=== PATIENT | male | born 2000 | race Caucasian/White ===

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

== ENCOUNTER 2024-08-13 23:56 | Emergency (ER) | payer SELFPAY ==
[2024-08-13 23:56] VITALS: BP 200/104; PULSE 93; RESP 16; TEMP 36.4; O2SAT 100; BMI 42.0
[2024-08-14 00:02] VITALS: BP 200/104; PULSE 93; RESP 16; TEMP 36.4; O2SAT 100
[2024-08-14 00:24] VITALS: BP 164/106; PULSE 78; RESP 16; O2SAT 99
--- NOTE | 2024-08-14 00:26 | EDS_ITS ---
HPI History of Present Illness Chief Complaint: Dental Informant: patient Narrative Narrative: 24-year-old male presenting with severe dental pain and swelling. He states he had a tooth that seem to decay and fall apart 2 days ago and ever since he has been having worsening pain and swelling. No fevers or chills. No discharge or bleeding from inside of his mouth. No problems breathing or swallowing. [facility] Medical History Hypertension Medical History no medical history Home Medications ?Medication ?Instructions ?Recorded ?Last Taken ?Type amlodipine 5 mg tablet 5 mg PO DAILY ##20 11/27/16 Unknown Rx tramadol 50 mg tablet 50 mg PO Q8H PRN PRN Pain #1 0 tabs 11/27/16 Unknown Rx amoxicillin 500 mg tablet 500 mg PO TID #30 tabs 08/14 Unknown Rx Allergy/AdvReac Type Severity Reaction Status Date / Time No Known Allergies Allergy Verified 08/14/24 00:03 Social History Smoking Status: Current every day smoker tobacco type: e-cigarettes ROS ROS ED Constitutional Constitutional ED: Denies chills or fever(s) Eyes Eyes: Denies change in vision or double vision ENT ENT ED: Reports dental pain and other Details: Left facial swelling ; Denies sinus pain or throat swelling Cardiovascular Cardiovascular: Denies chest pain or palpitations Respiratory/Chest Respiratory/Chest: Denies cough or dyspnea Integumentary Denies abscess or rash Neurologic Neurologic: Denies headache(s), paresthesias or weakness EXAM Physical Exam Const Vital Signs: 08/13/24 23:56 08/14/24 00:02 08/14/24 00:24 Temperature 97.5 F L 97.5 F L Temperature Source Oral Oral Pulse Rate 93 93 78 Respiratory Rate 16 16 16 Blood Pressure 200/104 H 200/104 H 164/106 H Blood Pressure Mean 136 136 125 Pulse Ox 100 100 99 Oxygen Delivery Method Room Air Room Air Room Air Positive well nourished and well developed General Appearance ED: well developed and NAD HEENT HEENT Narrative: External asymmetry with regards to the patient's maxilla, there is swelling and tenderness with what feels like a focal collection on the left. There is a decayed bicuspid left maxillary, with an abscess pointing intraorally just above this external to the gingiva which otherwise appear unremarkable. No trismus. No tongue elevation. Face and Sinus: sinuses nontender Throat: posterior oropharynx normal Eyes PERRL and EOMs intact bilaterally Neck no lymphadenopathy and supple Resp normal respiratory effort Neuro oriented x3 and CN's II-XII intact bilaterally Sensorium / Orientation: alert Gait (Neuro): normal gait Psych mental status grossly normal and thought process normal Skin no rashes or lesions noted and no wounds MDM MDM MDM Narrative Medical decision making narrative: Patient was amenable to needle aspiration of what appears to be a dental abscess. This was successful see the procedure note. He started on amoxicillin I gave him something for pain here tonight, advised to follow-up with a dentist and given a resource list. Procedures Other Procedures Procedure(s): Dental abscess drainage: After verbal consent from the patient after informing of pros and cons of procedure, he was locally anesthetized with Cetacaine spray, followed by attempted needle aspiration with a 21-gauge 1 inch needle. I was not able to aspirate pus, however after withdrawing the needle, pus began pouring out of the aspiration site, I was able to gently apply pressure to the abscess and express more pus and the patient was able to spit this out and irrigate himself with ice water. Tolerated well no complications. Airway intact. Discharge Plan Triage Chief Complaint: Dental ED Provider: Jason Falcon Dx/Rx/DC Orders Clinical Impression: Dental abscess, Dental decay Instructions: ED Dental Abscess Prescriptions: New amoxicillin 500 mg tablet 500 mg PO TID Qty: 30 0RF No Action amlodipine 5 MG tablet 5 mg PO DAILY Qty: 20 0RF tramadol 50 MG tablet 50 mg PO Q8H PRN PRN (Reason: Pain) Qty: 10 0RF Primary Care Provider: Care Physician,No Primary Referrals: Dentist,Your [STAFF PHYSICIAN] - As soon as possible (See attached resource list if needed) Print Language: Vietnamese Disposition Disposition: Home, Self Care
--- OUTSIDE RECORDS SUMMARY | 2024-08-14 00:33 | XMS RPT_ITS | CCD ---
Author Organization [facility] Care Team Providers Care Manager Mechanical Name Role Phone VJ PLUMMER (ORTHODONTIC TECHNICIAN) Unavailable Unavailable KERRI RENTERIA (JAI ALAI PLAYER) Unavailable UnavailELENA Kwong Attending Unavailable PHYSICIAN, NONE Primary Care Unavailable PHYSICIAN, NONE Primary Care Unavailable MARIA DOLORES FLORES DO Attending Unavailable Problems Problem Classification Problem Date Documented Da te Episodic/Chronic Administrative/social admission (1 source) Person awaiting admission to adequate facility elsewhere; Translations: [Person awaiting admission to adequate facility elsewhere] Onset: 06-02-2024 Episodic Substance-related disorders (1 source) Nicotine dependence, cigarettes, uncomplicated; Translations: [Nicotine dependence, cigarettes, uncomplicated] Onset: 06-02-2024 Chronic Suicide and intentional self-inflicted injury (1 source) Suicidal ideations; Translations: [Suicidal ideations] Onset: 06-02-2024 Episodic Unclassified (1 source) Encounter for screening for COVID-19; Translations: [Encounter for screening for COVID-19] Onset: 06-02-2024 Results Test Name Value Interpretation Reference Range Facility .Auto Diffon 06-02-2024 Basophil, Absolute 0.0 10 3/mcL Normal 0.0-0.2 [facility] Comment on above: Performed By: #### C K, TROPHS, ADIFF, CMP, CBC, GFR, ALC, ACETA, ANEU, MDW, LIAN #### [id number] [place], [place] [address] Basophils/100 WBC (Bld) 0.3 % Normal 0.0-2.5 [facility] Comment on above: Performed By: #### C K, TROPHS, ADIFF, CMP, CBC, GFR, ALC, ACETA, ANEU, MDW, LIAN #### [address] [address] Eosinophil, Absolute 0.0 10 3/mcL Normal 0.0-0.7 [facility] Comment on above: Performed By: #### C K, TROPHS, ADIFF, CMP, CBC, GFR, ALC, ACETA, ANEU, MDW, LIAN #### [address] [address] Eosinophils/100 WBC (Bld) 0.2 % Normal 0.0-7.0 [facility] Comment on above: Performed By: #### C K, TROPHS, ADIFF, CMP, CBC, GFR, ALC, ACETA, ANEU, MDW, LIAN #### [address] [address] Lymphocyte, Absolute 1.2 10 3/mcL Normal 0.9-4.3 [facility] Comment on above: Performed By: #### C K, TROPHS, ADIFF, CMP, CBC, GFR, ALC, ACETA, ANEU, MDW, LIAN #### [address] [address] Lymphocytes/100 WBC (Bld) 13.7 % Low 20.0-40.0 [facility] Comment on above: Performed By: #### C K, TROPHS, ADIFF, CMP, CBC, GFR, ALC, ACETA, ANEU, MDW, LIAN #### [address] [address] Monocyte, Absolute 0.5 10 3/mcL Normal 0.1-1.4 [facility] Comment on above: Performed By: #### C K, TROPHS, ADIFF, CMP, CBC, GFR, ALC, ACETA, ANEU, MDW, LIAN #### [address] [address] Monocytes/100 WBC (Bld) 6.0 % Normal 2.0-13.0 [facility] Comment on above: Performed By: #### C K, TROPHS, ADIFF, CMP, CBC, GFR, ALC, ACETA, ANEU, MDW, LIAN #### [address] [address] Neutrophils/100 WBC (Bld) 79.8 % High 50.0-75.0 [facility] Comment on above: Performed By: #### C K, TROPHS, ADIFF, CMP, CBC, GFR, ALC, ACETA, ANEU, MDW, LIAN #### [address] [address] .GFRon 06-02-2024 GFR/1.73 sq M.predicted among non-blacks MDRD (S/P/Bld) [Vol rate/Area] mL/min/{1.73_m2} Normal [facility] Comment on above: Result Comment: Stages of Chronic Kidney Disease (CKD) Stage Description eGFR(ml/min/1.73 sq.m.) CKD 1 Normal kidney function or >=90 normal kindney function with possible kidney damage (ex. Proteinuria) CKD 2 Kidney damage with mild loss 60-89 of kidney function CKD 3a Mild to moderate loss of kidney 45-59 function CKD 3b Moderate to severe loss of 30-44 of kindey function CKD 4 Severe loss of kidney function 15-29 CKD 5 Kidney failure <15 Note: (go live 2024) the eGFR calculation was updated to the 2020 CKD-EPI creatinine equation without a race factor to calculate the eGFR results. Performed By: #### U DRUG, UA #### [address] [address] #### UFENTS, UOXYS #### [address] [address] .MDWon 06-02-2024 Monocyte Distribution Width 14.80 Normal 0.00-20.00 [facility] Comment on above: Result Comment: For ED adult patients suspected of sepsis, MDW<=20.0 does not rule out sepsis or risk of sepsis Performed By: #### C K, TROPHS, ADIFF, CMP, CBC, GFR, ALC, ACETA, ANEU, MDW, LIAN #### [address] [address] .NEUABSon 06-02-2024 Neutrophil, Absolute 6.7 10 3/mcL Normal 2.3-8.1 [facility] Comment on above: Performed By: #### C Asael, TROPHS, ADIFF, CMP, CBC, GFR, ALC, ACETA, ANEU, MDW, LIAN #### [address] [address] ACETAon 06-02-2024 Acetaminophen [Mass/Vol] 0.0 ug/mL Low 10.0-30.0 [facility] Comment on above: Performed By: #### U DRUG, UA #### [place] [address] #### UFENTS, UOXYS #### [place] [address] Robb 06-02-2024 Ethanol Level 4 mg/dL Normal [facility] Comment on above: Performed By: #### U DRUG, UA #### [place] [address] #### UFENTS, UOXYS #### [place] [address] CBCon 06-02-2024 Erythrocyte distribution width (RBC) [Ratio] 13.6 % Normal 11.5-15.5 [facility] Comment on above: Performed By: #### C K, TROPHS, ADIFF, CMP, CBC, GFR, ALC, ACETA, ANEU, MDW, LIAN #### [address] [address] Hematocrit (Bld) [Volume fraction] 46.1 % Normal 40.0-52.0 [facility] Comment on above: Performed By: #### C K, TROPHS, ADIFF, CMP, CBC, GFR, ALC, ACETA, ANEU, MDW, LIAN #### [place] [id number] Hgb 15.7 G/dL Normal 13.0-17.5 [facility] Comment on above: Performed By: #### C K, TROPHS, ADIFF, CMP, CBC, GFR, ALC, ACETA, ANEU, MDW, LIAN #### [address] [address] MCH (RBC) [Entitic mass] 30.4 pg Normal 27.0-33.0 [facility] Comment on above: Performed By: #### Sussy Vyas, TROPHS, ADIFF, CMP, CBC, GFR, ALC, ACETA, ANEU, MDW, LIAN #### [address] [address] MCHC 34.1 G/dL Normal 32.0-36.0 [facility] Comment on above: Performed By: #### Sussy Vyas, TROPHS, ADIFF, CMP, CBC, GFR, ALC, ACETA, ANEU, MDW, LIAN #### [address] [address] MCV (RBC) [Entitic vol] 89.0 fL Normal 81.0-100.0 [facility] Comment on above: Performed By: #### Sussy Vyas, TROPHS, ADIFF, CMP, CBC, GFR, ALC, ACETA, ANEU, MDW, LIAN #### [address] [address] Platelet 330 10 3/mcL Normal 150-450 [facility] Comment on above: Performed By: #### Sussy Vyas, TROPHS, ADIFF, CMP, CBC, GFR, ALC, ACETA, ANEU, MDW, LIAN #### [address] [address] Platelet mean volume (Bld) [Entitic vol] 8.6 fL Normal 6.4-10.5 [facility] Comment on above: Performed By: #### Sussy Vyas, TROPHS, ADIFF, CMP, CBC, GFR, ALC, ACETA, ANEU, MDW, LIAN #### [address] [address] RBC 5.18 10 6/mcL Normal 4.50-6.00 [facility] Comment on above: Performed By: #### Sussy Vyas, TROPHS, ADIFF, CMP, CBC, GFR, ALC, ACETA, ANEU, MDW, LIAN #### [address] [address] WBC 8.4 10 3/mcL Normal 4.5-10.8 [facility] Comment on above: Performed By: #### C K, TROPHS, ADIFF, CMP, CBC, GFR, ALC, ACETA, ANEU, MDW, LIAN #### [address] [address] CKon 06-02-2024 CK [Catalytic activity/Vol] 116 U/L Normal 39-308 [facility] Comment on above: Performed By: #### C K, TROPHS, ADIFF, CMP, CBC, GFR, ALC, ACETA, ANEU, MDW, LIAN #### [address] [address] CMPon 06-02-2024 Albumin Level 4.5 G/dL Normal 3.5-5.0 [facility] Comment on above: Performed By: #### U DRUG, UA #### [place] [address] #### UFENTS, UOXYS #### [address] [address] Albumin/Globulin [Mass ratio] 1.2 {ratio} Normal 1.1-2.5 [facility] Comment on above: Performed By: #### U DRUG, UA #### [place] [address] #### UFENTS, UOXYS #### [address] [address] ALP [Catalytic activity/Vol] 70 U/L Normal 40-135 [facility] Comment on above: Performed By: #### U DRUG, UA #### [place] [address] #### UFENTS, UOXYS #### [address] [address] ALT [Catalytic activity/Vol] 29 U/L Normal 16-63 [facility] Comment on above: Performed By: #### U DRUG, UA #### [place] [address] #### UFENTS, UOXYS #### [address] [address] AST [Catalytic activity/Vol] 17 U/L Normal 10-40 [facility] Comment on above: Performed By: #### U DRUG, UA #### [address] [address] #### UFENTS, UOXYS #### [address] [address] Bili Total 0.8 mg/dL Normal 0.2-1.0 [facility] Comment on above: Result Comment: Use of this assay is not recommended for patients undergoing treatment with eltrombopag due to the potential for falsely elevated results. Performed By: #### U DRUG, UA #### [address] [address] #### UFENTS, UOXYS #### [address] [address] BUN/Creatinine Ratio 11 ratio Normal 7-27 [facility] Comment on above: Performed By: #### U DRUG, UA #### [address] [address] #### UFENTS, UOXYS #### [address] [address] Calcium [Mass/Vol] 9.5 mg/dL Normal 8.4-10.2 [facility] Comment on above: Performed By: #### U DRUG, UA #### [address] [address] #### UFENTS, UOXYS #### [address] [address] Chloride [Moles/Vol] 102 mmol/L Normal 98-107 [facility] Comment on above: Performed By: #### U DRUG, UA #### [address] [address] #### UFENTS, UOXYS #### [address] [address] CO2 [Moles/Vol] 27 mmol/L Normal 22-29 [facility] Comment on above: Performed By: #### U DRUG, UA #### [place] [address] #### UFENTS, UOXYS #### [address] [address] Creatinine [Mass/Vol] 0.83 mg/dL Normal 0.70-1.30 [facility] Comment on above: Result Comment: Test ing performed on Siemens Dimension EXL analyzer using a modified kinetic Hao technique. Performed By: #### U DRUG, UA #### [place] [address] #### UFENTS, UOXYS #### [place] [address] Electrolyte Balance 11.0 mEq/L Normal 4.0-15.0 [facility] Comment on above: Performed By: #### U DRUG, UA #### [place] [address] #### UFENTS, UOXYS #### [address] [address] Globulin 3.7 G/dL Normal 1.5-3.8 [facility] Comment on above: Performed By: #### U DRUG, UA #### [place] [address] #### UFENTS, UOXYS #### [address] [address] Glucose [Mass/Vol] 116 mg/dL High 70-105 [facility] Comment on above: Performed By: #### U DRUG, UA #### [place] [address] #### UFENTS, UOXYS #### [address] [address] Potassium [Moles/Vol] 3.8 mmol/L Normal 3.5-5.1 [facility] Comment on above: Performed By: #### U DRUG, UA #### [address] [address] #### UFENTS, UOXYS #### [address] [address] Sodium [Moles/Vol] 140 mmol/L Normal 136-145 [facility] Comment on above: Performed By: #### U DRUG, UA #### [place] [address] #### UFENTS, UOXYS #### [address] [address] Total Protein 8.2 G/dL Normal 6.4-8.2 [facility] Comment on above: Performed By: #### U DRUG, UA #### [place] [address] #### UFENTS, UOXYS #### [address] [address] Urea nitrogen [Mass/Vol] 9 mg/dL Normal 7-18 [facility] Comment on above: Performed By: #### U DRUG, UA #### [place] [address] #### UFENTS, UOXYS #### [address] [address] CVFLURVon 06-02-2024 FLU A PCR Negative Normal Negative [facility] Comment on above: Performed By: #### C VFLURV #### [place] [address] FLU B PCR Negative Normal Negative [facility] Comment on above: Performed By: #### C VFLURV #### [place] [address] RSV PCR Negative Normal Negative [facility] Comment on above: Performed By: #### C VFLURV #### [place] [address] SARS-CoV-2 (COVID-19) RNA XAVIER+probe Ql (Unsp spec) Negative Normal Negative [facility] Comment on above: Result Comment: Resu lts from the Xpert Xpress CoV-2/Flu/RSV plus test should be correlated with the clinical history, epidemiological data, and other data available to the clinical evaluating the patient. Performance of the Xpert Xpress CoV-2/Flu/RSV plus test has only been established in nasopharyngeal swab specimen. Erroneous test results might occur from improper specimen collection, failure to follow the recommended sample collection, handling and storage procedures, technical error, or sample mix-up. False negative results may occur if a virus is present at a level below the analytical limit of detection. Viral nucleic acid may persist in vivo, independent of virus viability. Detection of analyte target(s) does not imply that the corresponding virus(es) are infectious or are the causative agents for clinical symptoms. Recent patient exposure to FluMist or other live attenuated influenza vaccines may cause inaccurate positive results. Performed By: #### C VFLURV #### [address] [address] [facility] 06-02-2024 Salicylate Level 0.9 mg/dL Low 2.8-20.0 [facility] Comment on above: Performed By: #### U DRUG, UA #### [address] [address] #### UFENTS, UOXYS #### [address] 06-02-2024 High Sensitivity Troponin I 4 ng/L Normal 0-76 [facility] Comment on above: Result Comment: High Sensitive Troponin I Reference Ranges: Female: 0-51 ng/L Male: 0-76 ng/L Testing performed on [employer] using a homogeneous sandwich chemiluminescent immunoassay based on [employer] technology. Performed By: #### U DRUG, UA #### [address] [address] #### UFENTS, UOXYS #### [address] 06-02-2024 Color (U) Yellow Normal [facility] Comment on above: Performed By: #### U DRUG, UA #### [address] [address] #### UFENTS, UOXYS #### [facility] [address] [place] [address] Glucose (U) [Mass/Vol] Negative Normal Negative [facility] Comment on above: Performed By: #### U DRUG, UA #### [address] [address] #### UFENTS, UOXYS #### [facility] [address] [place] [address] Ketones Ql (U) Trace Abnormal Negative [facility] Comment on above: Performed By: #### U DRUG, UA #### [address] [address] #### UFENTS, UOXYS #### [address] [address] UA Appear Clear Normal Clear [facility] Comment on above: Performed By: #### U DRUG, UA #### [address] [address] #### UFENTS, UOXYS #### [address] [address] UA Blood Negative Normal Negative [facility] Comment on above: Performed By: #### U DRUG, UA #### [address] [address] #### UFENTS, UOXYS #### [address] [address] UA Leuk Est Negative Normal Negative [facility] Comment on above: Performed By: #### U DRUG, UA #### [address] [address] #### UFENTS, UOXYS #### [facility] [address] [place] [address] UA Nitrite Negative Normal Negative [facility] Comment on above: Performed By: #### U DRUG, UA #### [address] [address] #### UFENTS, UOXYS #### [address] [address] UA pH 6.5 Normal 5.0 - 8.0 [facility] Comment on above: Performed By: #### U DRUG, UA #### [place] [address] #### UFENTS, UOXYS #### [place] [address] UA Protein Trace Normal Negative [facility] Comment on above: Performed By: #### U DRUG, UA #### [place] [address] #### UFENTS, UOXYS #### [place] [address] UA Spec Grav 1.020 Normal 1.015-1.025 [facility] Comment on above: Performed By: #### U DRUG, UA #### [place] [address] #### UFENTS, UOXYS #### [place] [address] UA Specimen Type Not Given Normal [facility] Comment on above: Performed By: #### U DRUG, UA #### [place] [address] #### UFENTS, UOXYS #### [place] [address] UA Urobilinogen 1.0 E.U./dL Normal 0.2-1.0 [facility] Comment on above: Performed By: #### U DRUG, UA #### [place] [address] #### UFENTS, UOXYS #### [place] [address] Urobilinogen (U) [Mass/Vol] Negative Normal Negative [facility] Comment on above: Performed By: #### U DRUG, UA #### [place] [address] #### UFENTS, UOXYS #### [place] [address] UDRUGon 06-02-2024 Amphetamine (u) Negative Normal Negative [facility] Comment on above: Performed By: #### U DRUG, UA #### [address] [address] #### UFENTS, UOXYS #### [facility] [address] [place] [address] Barbiturate (u) Negative Normal Negative [facility] Comment on above: Performed By: #### U DRUG, UA #### [address] [address] #### UFENTS, UOXYS #### [facility] [address] [place] [address] Benzodiazepine (u) Negative Normal Negative [facility] Comment on above: Performed By: #### U DRUG, UA #### [address] [address] #### UFENTS, UOXYS #### [facility] [address] [place] [address] Cannabinoid (u) Positive Abnormal Negative [facility] Comment on above: Performed By: #### U DRUG, UA #### [address] [address] #### UFENTS, UOXYS #### [facility] [address] [place] [address] Cocaine Ql (U) Negative Normal Negative [facility] Comment on above: Performed By: #### U DRUG, UA #### [address] [address] #### UFENTS, UOXYS #### [facility] [address] [place] [address] Methadone Ql (U) Negative Normal Negative [facility] Comment on above: Performed By: #### U DRUG, UA #### [address] [address] #### UFENTS, UOXYS #### [facility] [address] [place] [address] Opiate (u) Negative Normal Negative [facility] Comment on above: Performed By: #### U DRUG, UA #### [address] [address] #### UFENTS, UOXYS #### [address] [address] PCP (u) Negative Normal Negative [facility] Comment on above: Performed By: #### U DRUG, UA #### [address] [address] #### UFENTS, UOXYS #### [address] [address] Urine Drugs screened: See Below Normal [facility] Comment on above: Result Comment: This drug screen is a presumptive screening only. No confirmation will be performed unless requested. Drugs screened include: Threshold Amphetamines/Methamphetamines 1,000 ng/mL Barbiturates 200 ng/mL Benzodiazepine metabolites 200 ng/mL Cannabinoids (THC metabolites) 50 ng/mL Cocaine 300 ng/mL Opiates 300 ng/mL Methadone 300 ng/mL Phencyclidine (PCP) 25 ng/mL Testing has been performed FOR MEDICAL PURPOSES ONLY. Performed By: #### U DRUG, UA #### [address] [address] #### UFENTS, UOXYS #### [place] [address] UFENTSon 06-02-2024 Fentanyl (u) Negative Normal Negative [facility] Comment on above: Result Comment: Test ing has been performed FOR MEDICAL PURPOSES ONLY. Performed By: #### U DRUG, UA #### [address] [address] #### UFENTS, UOXYS #### [place] [address] UOXYSon 06-02-2024 Oxycodone (u) Negative Normal Negative [facility] Comment on above: Result Comment: Test ing has been performed FOR MEDICAL PURPOSES ONLY. Performed By: #### U DRUG, UA #### [address] [address] #### UFENTS, UOXYS #### [place] [address] CNOVon 11-27-2016 CNOV Office Visit ([facility]) FRANCO RODRIGUEZ ([id number]) 2000 MDate Time Provider Department11/27/16 11:45 AM KERRI CAM (JAI ALAI PLAYER) WSTR During your visit today, we recorded the following information about you: Temperature Pulse Respiration Weight 98.6 degrees 80/minute 18/minute 128.4 kgChidi Fritz CNP 11/27/2016 12:08 PM SignedHPIPatient CC of ANDquot;worse headache of my lifeANDquot; has been going on for 1 weekROSPhysical ExamASSESSMENT/PLAN:1. Headache, unspecified headache type - ICD9: 784.0, ICD10: [id number] ER evaluation/treatment d/t severity of symptoms-patient elected to be driven by father.Chidi Fritz CNPReferring Provider: SELF [200]Allergies As of Date: 11/27/2016(No Known Allergies)Date Reviewed: 11/27/2016Reviewed by: Maryam Anderson LPN - Fully AssessedReason for Visit: sinus congestion and headache [Other] Cmt: x 6 daysPrimary Visit Diagnosis:Headache, unspecified headache type [R51]Prescriptions as of 11/27/2016 Sig: BENZONATATE 100 MG CAPSULE Take 2 capsules by mouth thre* METHYLPREDNISOLONE 4 MG TABLE* As Instructed per package ONDANSETRON HCL 4 MG TABLET Take 1 tablet by mouth every * PSEUDOEPHEDRINE-GUAIFENES IN E* Take 2 tablets by mouth every*Medication notes this encounter BENZONATATE 100 MG CAPSULE >> Maryam Anderson LPN 11/27/2016 11:50 AM >> MARYAM ANDERSON LPN FriNov 27, 2016 11:50 AM Not TakingProblem List As Of Date: 11/27/2016(None) Status:Closed by CHIDI FRITZ CNP on 11/27/16 [facility] PROGRESSon 11-27-2016 PROGRESS HNO ID: [id number] thor: Chidi Vicente) Cherie: (none)Author Type: Nurse PractitionerType: Progress NotesFiled: 11/27/2016 12:08 PMNote Text:HPIPatient CC of worse headache of my life has been going on for 1 weekROSPhysical ExamASSESSMENT/PLAN:1. Headache, unspecified headache type - ICD9: 784.0, ICD10: [id number] ER evaluation/treatment d/t severity of symptoms-patient elected to be driven by father.Chidi Fritz CNP [facility] CNOVon 10-29-2016 CNOV Office Visit ([facility]) ENOCHFRANCO ([id number]) 2000 MDate Time Provider Department10/29/16 10:00 AM CHIDI FRITZ) WS During your visit today, we recorded the following information about you: Temperature Pulse Respiration Weight 98.7 degrees 80/minute 22/minute 130.2 kgChidi Fritz CNP 10/29/2016 11:10 AM SignedHPCHITRA Franco Rodriguez is a 16 year old male who presents today for CC of sore throatand cough. This started 5 days. Has tried ibuprofen with mild relief.Symptoms are worsened by environment at work. Risk factors smokes small cigarevery few days. Mother and another family member are currently ill with similarsymptomsReview of SystemsHENT: Negative for ear discharge and nosebleeds.Eyes: Negative for pain, discharge and redness.Respiratory: Positive for cough, shortness of breath and wheezing.Cardiovascular: Positive for chest pain.Skin: Negative for itching and rash.Neurological: Positive for headaches.No past medical history on file.No past surgical history on file.ALLERGIES Review of patient's allergies indicates no known allergies.MEDICATIONSmeth ylPREDNISolone (MEDROL, ASHLEY,) 4 mg Dose-Pack As Instructed per packageondansetron (ZOFRAN, HYDROCHLORIDE,) 4 mg tablet Take 1 tablet by mouthevery 8 hours as needed.pseudoephedrine-gu aiFENesin (MUCINEX D) 60-600 mg per tablet Take 2 tablets bymouth every 12 hours as needed for Cold/Allergy Symptoms.Promethazine-DM (PHENERGAN-DM) 6.25-15 mg/5 mL syrup Take 5 mL by mouth fourtimes daily as needed.No family history on file.Social HistorySubstance Use Topics- Smoking status: Current Some Day Smoker Types: Cigars- Smokeless tobacco: Never Used- Alcohol use Not on filePhysical ExamConstitutional: He is well-developed, well-nourished, and in no distress. Nodistress.HENT:Head: Normocephalic and atraumatic.Right Ear: Hearing, tympanic membrane, external ear and ear canal normal.Left Ear: Hearing, tympanic membrane, external ear and ear canal normal.Mouth/Throat: Posterior oropharyngeal erythema (mild) present. No oropharyngealexudate, posterior oropharyngeal edema or tonsillar abscesses.Eyes: Conjunctivae, EOM and lids are normal. Pupils are equal, round, andreactive to light. Lids are everted and swept, no foreign bodies found. Righteye exhibits no discharge. Left eye exhibits no discharge. No scleral icterus.Neck: Trachea normal and normal range of motion. Neck supple.Cardiovascular: Normal rate, regular rhythm and normal heart sounds.Pulmonary/Chest: Effort normal and breath sounds normal.Lymphadenopathy: He has no cervical adenopathy.Skin: No rash noted. He is not diaphoretic.ASSESSMENT/PL AN:1. Sore throat - ICD9: 462, ICD10: J02.9 (primary diagnosis)- suspect viral- Rapid Strep negative in the office today- Discussed supportive care treatment with fluids, rest and analgesia.- The patient should follow up in 3-5 days if symptoms persist or worsen- Call back if drooling, increased temperature, symptoms of dehydration and/orstill sick in one week- RAPID STREP TEST B/O- GROUP A STREPTOCOCCUS BY PCR2. Viral URI with cough - ICD9: 465.9, ICD10: J06.9, B97.89- Discussed viral etiology and rationale for treatment.- Symptomatic treatment with prn analgesia- Supportive care with fluids and rest- The patient may also use OTC cough and cold meds as needed and warm saltwater gargles, throat lozenges and/or OTC throat spray as needed.- Follow up in 3-5 days if symptoms persist or sooner if worsening of symptoms- BENZONATATE 100 MG CAPSULEPrescription instructions reviewed with patient as applicable. Patient advisedif symptoms do not improve or if symptoms worsen sooner, to contact the officefor further evaluation by either myself or their primary care physician.Potential red flag symptoms discussed with the patient. Reviewed appropriateaction plan to take if red flag symptoms occur. Patient agreeable to treatmentplan.Foster Rivera CNP 10/29/2016 10:59 AM SignedRESPIRATORY INFECTIONGENERAL INFORMATION:An upper respiratory tract infection, or cold, is a viral infection of theairway passages. It can be caused by any one of almost 200 different viruses.Common symptoms include a runny or stuffy nose, sneezing, watery eyes, sorethroat, cough, and slight fever. Colds are contagious, especially during thefirst 3 or 4 days and cannot be cured by antibiotics. They are spread bycoughs, sneezes, and direct contact, especially vafm-ai-xelk. A respiratorytract infection usually clears up in a few days, but some people may be sickfor a week or two.INSTRUCTIONS:1. Be careful not to blow your nose too hard because this may cause a nosebleed.2. Use a cool-mist humidifier (vaporizer) to increase air moisture. This willmake it easier for you to breathe. Do not use hot steam.3. Rest as much as possible and get plenty of sleep.4. Wash your hands often, especially after you blow your nose. Cover yourmouth and nose with a tissue when you sneeze or cough.5. Drink plenty of clear fluids (8 glasses a day) such as water, fruit juice,tea, clear soups, and carbonated beverages.CONTACT YOUR DOCTOR IF :1. Your fever lasts more than 3 days.2. You have a sore throat that gets worse or you see white or yellow spots inyour throat.3. Your cough gets worse or lasts more than 10 days.4. You develop a rash anywhere on your skin.5. You have an earache or a headache.6. You have thick greenish or yellowish discharge from your nose.RETURN IMMEDIATELY IF:1. You cough up thick yellow, green, fischer, or bloody sputum.2. You have difficulty breathing, pain in your chest, or your skin or nailslook fischer or blue.3. You have shaking chills or a temperature over 102 F (39 C).Referring Provider: SELF [200]Allergies As of Date: 10/29/2016(No Known Allergies)Date Reviewed: 10/29/2016Reviewed by: Chidi (Agriculture Technician) [facility] for Visit: Sore Throat [200] Cmt: X 5 dayPrimary Visit Diagnosis:Sore throat [J02.9] Other Visit Diagnosis:Viral URI with cough [J06.9, B97.89]Order(s):RAPID STREP TEST B/O [[id number]] Order #: [id number] GROUP A STREPTOCOCCUS BY PCR [SQGASPCR] Order #: [id number] benzonatate (TESSALON PERLE) 100 mg capsuleTake 2 capsules by mouth three times daily as needed for Cough.Disp: 30 capsuleRfl: 0Prescriptions as of 10/29/2016 Sig: METHYLPREDNISOLONE 4 MG TABLE* As Instructed per package ONDANSETRON HCL 4 MG TABLET Take 1 tablet by mouth every * PSEUDOEPHEDRINE-GUAIFENES IN E* Take 2 tablets by mouth every* BENZONATATE 100 MG CAPSULE Take 2 capsules by mouth thre*Medication notes this encounter METHYLPREDNISOLONE 4 MG TABLETS IN A DOSE PACK >> Mya Rothman LPN 10/29/2016 10:29 AM >> MYA ROTHMAN LPN FriOct 29, 2016 10:29 AM Not takingProblem List As Of Date: 10/29/2016(None) Other instructions from your clinician: RESPIRATORY INFECTION GENERAL INFORMATION: An upper respiratory tract infection, or cold, is a viral infection of the airway passages. It can be caused by any one of almost 200 different viruses. Common symptoms include a runny or stuffy nose, sneezing, watery eyes, sore throat, cough, and slight fever. Colds are contagious, especially during the first 3 or 4 days and cannot be cured by antibiotics. They are spread by coughs, sneezes, and direct contact, especially fabz-gy-ujei. A respiratory tract infection usually clears up in a few days, but some people may be sick for a week or two. INSTRUCTIONS: 1. Be careful not to blow your nose too hard because this may cause a nosebleed. 2. Use a cool-mist humidifier (vaporizer) to increase air moisture. This will make it easier for you to breathe. Do not use hot steam. 3. Rest as much as possible and get plenty of sleep. 4. Wash your hands often, especially after you blow your nose. Cover your mouth and nose with a tissue when you sneeze or cough. 5. Drink plenty of clear fluids (8 glasses a day) such as water, fruit juice, tea, clear soups, and carbonated beverages. CONTACT YOUR DOCTOR IF : 1. Your fever lasts more than 3 days. 2. You have a sore throat that gets worse or you see white or yellow spots in your throat. 3. Your cough gets worse or lasts more than 10 days. 4. You develop a rash anywhere on your skin. 5. You have an earache or a headache. 6. You have thick greenish or yellowish discharge from your nose. RETURN IMMEDIATELY IF: 1. You cough up thick yellow, green, fischer, or bloody sputum. 2. You have difficulty breathing, pain in your chest, or your skin or nails look fischer or blue. 3. You have shaking chills or a temperature over 102 F (39 C).Prescriptions ordered this encounter Disp Refills Start End BENZONATATE 100 MG CAPSULE 30 c* 0 10/29/2016 Route: ORAL Sig: Take 2 capsules by mouth three times daily as needed for Cough.Medications Discontinued During This Encounter Promethazine-DM (PHENERGAN-DM) 6.25-* 120 * 0 04/21/2014 10/29/2016 Route: ORAL Sig: Take 5 mL by mouth four times daily as needed. Disc: Clinical DecisionLetter TextWoosterDepartment of Urgent CareChidi Fritz, PNP[address], [place] [address]Nfvff: [phone] WHOM IT MAY CONCERN:This is to confirm that [facility] an [facility] by JEANETTE Simental on 10/29/2016 and may return to work on 10/30/2016.Sincerely yours,Chidi Fritz CNPEncounter Number: [id number] Status:Closed by CHIDI FRITZ CNP on 10/29/16 [facility] Group A Strep by PCRon 10-29 GAS Specimen Source Throat Swab Normal [facility] Comment on above: Performed By: #### G ASPCR ####[facility] [address], [place] [phone] Group A Strep PCR Negative Normal [facility] Comment on above: Result Comment: This test was developed and its performance characteristics determined by [facility]'s [facility] ([facility]).It has not been cleared or approved by the FDA. [facility] is regulated under CLIA as qualified to perform high-complexity testing. This test is used for clinical purposes. It should not be regarded as investigational or for research. Performed By: #### G ASPCR ####[facility] [address], [place] [phone] PROGRESSon 10-29-2016 PROGRESS HNO ID: [id number] thor: Chidi (Jeanette) Cherie: (none)Author Type: Nurse PractitionerType: Progress NotesFiled: 10/29/2016 11:10 AMNote Text:HPIHPI Franco Rodriguez is a 16 year old male who presents today for CC of sorethroat and cough. This started 5 days. Has tried ibuprofen with mildrelief. Symptoms are worsened by environment at work. Risk factorssmokes small cigar every few days. Mother and another family member arecurrently ill with similar symptomsReview of SystemsHENT: Negative for ear discharge and nosebleeds.Eyes: Negative for pain, discharge and redness.Respiratory: Positive for cough, shortness of breath and wheezing.Cardiovascular: Positive for chest pain.Skin: Negative for itching and rash.Neurological: Positive for headaches.No past medical history on file.No past surgical history on file.ALLERGIES Review of patient's allergies indicates no known allergies.MEDICATIONSmeth ylPREDNISolone (MEDROL, ASHLEY,) 4 mg Dose-Pack As Instructed per packageondansetron (ZOFRAN, HYDROCHLORIDE,) 4 mg tablet Take 1 tablet by mouthevery 8 hours as needed.pseudoephedrine-gu aiFENesin (MUCINEX D) 60-600 mg per tablet Take 2tablets by mouth every 12 hours as needed for Cold/Allergy Symptoms.Promethazine-DM (PHENERGAN-DM) 6.25-15 mg/5 mL syrup Take 5 mL by mouthfour times daily as needed.No family history on file.Social HistorySubstance Use Topics- Smoking status: Current Some Day Smoker Types: Cigars- Smokeless tobacco: Never Used- Alcohol use Not on filePhysical ExamConstitutional: He is well-developed, well-nourished, and in no distress.No distress.HENT:Head: Normocephalic and atraumatic.Right Ear: Hearing, tympanic membrane, external ear and ear canal normal.Left Ear: Hearing, tympanic membrane, external ear and ear canal normal.Mouth/Throat: Posterior oropharyngeal erythema (mild) present. Nooropharyngeal exudate, posterior oropharyngeal edema or tonsillarabscesses.Eyes: Conjunctivae, EOM and lids are normal. Pupils are equal, round, andreactive to light. Lids are everted and swept, no foreign bodies found.Right eye exhibits no discharge. Left eye exhibits no discharge. Noscleral icterus.Neck: Trachea normal and normal range of motion. Neck supple.Cardiovascular: Normal rate, regular rhythm and normal heart sounds.Pulmonary/Chest: Effort normal and breath sounds normal.Lymphadenopathy: He has no cervical adenopathy.Skin: No rash noted. He is not diaphoretic.ASSESSMENT/PL AN:1. Sore throat - ICD9: 462, ICD10: J02.9 (primary diagnosis)- suspect viral- Rapid Strep negative in the office today- Discussed supportive care treatment with fluids, rest and analgesia.- The patient should follow up in 3-5 days if symptoms persist or worsen- Call back if drooling, increased temperature, symptoms of dehydrationand/or still sick in one week- RAPID STREP TEST B/O- GROUP A STREPTOCOCCUS BY PCR2. Viral URI with cough - ICD9: 465.9, ICD10: J06.9, B97.89- Discussed viral etiology and rationale for treatment.- Symptomatic treatment with prn analgesia- Supportive care with fluids and rest- The patient may also use OTC cough and cold meds as needed and warm saltwater gargles, throat lozenges and/or OTC throat spray as needed.- Follow up in 3-5 days if symptoms persist or sooner if worsening ofsymptoms- BENZONATATE 100 MG CAPSULEPrescription instructions reviewed with patient as applicable. Patientadvised if symptoms do not improve or if symptoms worsen sooner, tocontact the office for further evaluation by either myself or [facility] physician. Potential red flag symptoms discussed with thepatient. Reviewed appropriate action plan to take if red flag symptomsoccur. Patient agreeable to treatment plan.Chidi Fritz CNP [facility] Encounters Encounter Date Encounter Type Care Provider Facility Start: 06-02-2024 End: 06-02-2024 Emergency department patient visit NONE PHYSICIAN Facility:[facility] Start: 04-20-2022 End: 04-20-2022 Emergency department patient visit ELENA CLIFTON Facility:B Start: 11-27-2016 End: 11-27-2016 Ambulatory KERRI Otero (JOY) [facility] Start: 10-29-2016 End: 10-30-2016 Ambulatory VJ VICENTE) KAVITHA [facility] Payers Date Payer Category Payer Self-pay 1998 Unknown [id number] 1998 Unknown [id number] Summary Purpose Family History No Family History Records FoundNo Family History Records FoundNo Family History Records Found Advance Directives No Advanced Directives Records FoundNo Advanced Directives Records FoundNo Advanced Directives Records Found Additional Source Comments (unrecognized sect ion and content) No Status Records FoundNo Status Records FoundNo Status Records Found INFORMATION SOURCE (unrecogn ized section and content) DATE CREATED AUTHOR 09/03/2017 [facility] DATE CREATED AUTHOR AUTHOR'S ORGANIZ ATION 04/26/2022 [facility] ([place]) DATE CREATED AUTHOR AUTHOR'S ORGANIZ ATION 06/13/2024 [facility] FOR RECORDS PERTAINING TO PATIENTS WHO ARE OR HAVE BEEN ENROLLED IN A CHEMICAL DEPENDENCY/SUBSTANCEABUSE PROGRAM, SOME INFORMATION MAY BE OMITTED. This clinical summary was aggregated from multiple sources. Caution should be exercised in using it in the provision of clinical care. This summary normalizes information from multiple sources, and as a consequence, information in this document may materially change the coding, format and clinical context of patient data. In addition, data may be omitted in some cases. CLINICAL DECISIONS SHOULD BE BASED ON THE PRIMARY CLINICAL RECORDS. [facility] [employer] provides no warranty or guarantee of the accuracy or completeness of information in this document.
[2024-08-14] MEDS: AMOXICILLIN 500 MG CAPSULE PO (00:52)
[2024-08-14] MEDS: Tetracaine/Benzocaine/Butamben 1 APPLIC TOPICAL (00:52)
[2024-08-14] MEDS: HYDROcodone Bitartrate/Apap 5/325 Tablet PO (00:52)
[2024-08-14 00:53] VITALS: BP 140/85; PULSE 80; RESP 16; TEMP 36.8; O2SAT 99
== END 2024-08-14 01:25 | disposition home or self-care (01) ==
PROVIDERS: Emergency Provider Emergency Medicine; Visit Provider Emergency Medicine
DX: K04.7 Periapical abscess without sinus (principal); K02.9 Dental caries, unspecified; I10 Essential (primary) hypertension; F17.290 Nicotine dependence, other tobacco product, uncomplicated
CPT/HCPCS: 41800; 99282

== ENCOUNTER → 2024-12-14 | Outpatient (CLI) | payer MEDICAID, SELFPAY ==
[2024-12-14 10:28] LABS: Hematocrit 45.2 % (40-54); Hemoglobin 15.4 g/dL (13.0-16.5); Immature Granulocytes Count 0.020 X10^3/uL (0.0-0.0); Mean Corp Hgb Conc 34.1 g/dL (32-36); Mean Corpuscular Volume 89.2 fL (80-94); Mean Platelet Vol. 10.5 fl (6.2-12.0); NRBC Flagged by Analyzer 0 % (0-5); Platelet Count 345 K/mm3 (150-450); RBC Distribution Width CV 13.2 % (11.6-14.6); RBC Distribution Width SD 43.0 fl (35.1-43.9); Red Blood Count 5.07 M/mm3 (4.6-6.2); White Blood Count 5.3 K/mm3 (4.4-11.0)
[2024-12-14 11:15] LABS: AST(SGOT) 12 U/L (<=37); Alanine Aminotransfer ALT/SGPT 28 U/L (<=46); Albumin, Serum 4.7 g/dL (3.5-5.0); Alkaline Phosphatase 62 U/L (40-129); Anion Gap 11 (5-15); BUN 15 mg/dL (4-19); BUN/Creat Ratio 17.3 RATIO (10-20); Calcium,Total 9.9 mg/dL (7.6-11.0); Carbon Dioxide 25.6 mmol/L (21.0-32.0); Chloride 105 mmol/L (98-108); Globulin 2.9 g/dL (2.2-4.2); Glucose 84 mg/dL (70-99); Potassium 4.3 mmol/L (3.3-5.1)
== END | disposition home or self-care (01) ==
LOC: LAB 09:26
DX: I10 Essential (primary) hypertension (principal)
CPT/HCPCS: 36415; 80053; 84443; 85025

== ENCOUNTER → 2024-12-28 | Outpatient (CLI) | payer MEDICAID, SELFPAY ==
[2024-12-28 14:06] LABS: Anion Gap 9 (5-15); BUN 12 mg/dL (4-19); BUN/Creat Ratio 15.8 RATIO (10-20); Calcium,Total 9.8 mg/dL (7.6-11.0); Carbon Dioxide 27.1 mmol/L (21.0-32.0); Chloride 102 mmol/L (98-108); Glucose 110 mg/dL (70-99); Potassium 4.9 mmol/L (3.3-5.1)
== END | disposition home or self-care (01) ==
LOC: VSLAB 09:36
DX: I10 Essential (primary) hypertension (principal)
CPT/HCPCS: 36415; 80048